=== PATIENT | female | born 1960 | race Two or more races ===

== ENCOUNTER 2018-06-09 08:21 | Outpatient (CLI) | payer OTHER ==
[~2018-06-09 08:21] MED LIST: ANTIVERT25 M1 PO; AVALIDE 150-12.1 TA1 PO; JANUMET 50-501 UDTAB PO; MUCINEX600 MG PO; NASONEX17 GM NS
== END 2018-06-09 08:24 | disposition home or self-care (01) ==
LOC: RAD 08:21
DX: M12.88 Other specific arthropathies, not elsewhere classified, other specified site (principal); M19.90 Unspecified osteoarthritis, unspecified site

== ENCOUNTER 2021-12-28 10:53 | Outpatient (CLI) | payer OTHER | END 2021-12-28 10:55 | disposition home or self-care (01) | LOC: LAB 10:53 | PROVIDERS: ATTEND Radiology Diagnostic Radiology | DX: R10.10 Upper abdominal pain, unspecified (principal) ==

== ENCOUNTER 2022-01-09 07:39 | Outpatient (CLI) | payer OTHER | END 2022-01-09 07:40 | disposition home or self-care (01) | LOC: TOM 07:39 | PROVIDERS: ATTEND Internal Medicine Gastroenterology | DX: R14.3 Flatulence (principal); R10.10 Upper abdominal pain, unspecified ==

== ENCOUNTER 2022-06-13 07:44 | Outpatient (CLI) | payer OTHER ==
[2022-06-13] MEDS ORDERED: CYCLOBENZAPRINE10 MG PO (17:49)
== END 2022-06-13 07:57 | disposition home or self-care (01) ==
LOC: RAD 07:44
PROVIDERS: ATTEND Internal Medicine Cardiovascular Disease
DX: M12.9 Arthropathy, unspecified (principal); M46.48 Discitis, unspecified, sacral and sacrococcygeal region

== ENCOUNTER 2022-07-10 08:00 | Outpatient (CLI) | payer OTHER ==
[~2022-07-10 08:00] MED LIST changes: +CYCLOBENZAPRINE10 MG PO
== END 2022-07-10 08:10 | disposition home or self-care (01) ==
LOC: MRI 08:00
PROVIDERS: ATTEND Physical Medicine & Rehabilitation
DX: M54.51 Vertebrogenic low back pain (principal); M51.37 Other intervertebral disc degeneration, lumbosacral region
CPT/HCPCS: 72148

== ENCOUNTER 2023-11-08 07:51 | Outpatient (CLI) | payer OTHER ==
[~2023-11-08 07:51] MED LIST changes: +DICLOFENAC POTA50 MG PO
== END 2023-11-08 07:56 | disposition home or self-care (01) ==
LOC: SONOGRAMA 07:51
PROVIDERS: ATTEND Internal Medicine
DX: N18.2 Chronic kidney disease, stage 2 (mild) (principal)

== ENCOUNTER 2024-06-23 12:23 | Outpatient (CLI) | payer OTHER | END 2024-06-23 12:25 | disposition home or self-care (01) | LOC: RAD 12:23 | PROVIDERS: ATTEND Internal Medicine | DX: J44.1 Chronic obstructive pulmonary disease with (acute) exacerbation (principal); J32.8 Other chronic sinusitis ==

== ENCOUNTER 2024-09-08 08:08 | Outpatient (CLI) | payer OTHER | END 2024-09-08 08:10 | disposition home or self-care (01) | LOC: SONOGRAMA 08:08 | PROVIDERS: ATTEND Internal Medicine | DX: E03.8 Other specified hypothyroidism (principal); E04.1 Nontoxic single thyroid nodule ==

== ENCOUNTER 2024-11-19 17:22 | Emergency (ER) | payer OTHER ==
[~2024-11-19] VITALS: Ht 152.4 cm; Wt 79.4 kg
[2024-11-19] MEDS ORDERED: LIDOCAINE HCL 120 ML ML MM ONE (20:15)
[2024-11-19] MEDS ORDERED: KETOROLAC TROMETHAMINE 15 MG VIAL IM ONE (20:15)
[2024-11-19] MEDS ORDERED: LIDOCAINE HCL VISCOUS 20MG/ML BLIST 15ML MM ONE (20:16)
[2024-11-19] MEDS ORDERED: KETOROLAC TROMETHAMINE 30 MG VIAL ONE (20:16)
[2024-11-19] MEDS ORDERED: TRAM1TAB98 PO (22:17)
== END 2024-11-19 22:33 ==
LOC: ER 17:51
DX: S09.8XXA Other specified injuries of head, initial encounter (principal); W19.XXXA Unspecified fall, initial encounter; Y93.89 Activity, other specified; Y92.098 Other place in other non-institutional residence as the place of occurrence of the external cause; Y99.8 Other external cause status; R58 Hemorrhage, not elsewhere classified; I10 Essential (primary) hypertension; E11.9 Type 2 diabetes mellitus without complications; Z79.84 Long term (current) use of oral hypoglycemic drugs; Z88.2 Allergy status to sulfonamides
CPT/HCPCS: 70110; 96372; 99283; J1885

== ENCOUNTER 2025-02-08 10:57 | Outpatient (CLI) | payer OTHER ==
[~2025-02-08 10:57] MED LIST changes: +IBU800 MG PO; +NORFLEX100MG PO; +TRAM1TAB98 PO
== END 2025-02-08 10:59 | disposition home or self-care (01) ==
LOC: MRI 10:57
PROVIDERS: ATTEND Physical Medicine & Rehabilitation
DX: M54.51 Vertebrogenic low back pain (principal)
CPT/HCPCS: 72148